=== PATIENT | male | born 1955 | race American Indian/Alaskan Native ===

== ENCOUNTER 2016-10-08 08:36 | Outpatient (CLI) | payer MEDICARE ==
--- NOTE | 2016-10-08 09:13 | XRay Report ---
Right hip: Severe periarticular spurs are identified involving the superior and medial joint articulations with virtual absence of any superior joint space and marked narrowing of the medial joint space. Subchondral cysts are identified in the femoral head and in the lateral superior acetabulum. The hip appears well positioned within the acetabula. AP view of the left hip also demonstrates mild narrowing of the superior joint space however the articular surfaces are smooth. There is mild lateral spurring of the femoral head. The SI joints are grossly normal. Severe spondylosis is noted at the L4 and L5 levels with significant narrowing of the right lateral L4-5 joint space and poor definition of the L5-S1 space. Impressions: 1. Severely degenerative right hip. 2. 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 3. Mild degenerative left hip changes.
== END 2016-10-08 08:37 | disposition home or self-care (01) ==
LOC: XRAY 08:36
PROVIDERS: ATTEND Family Medicine
DX: M16.11 Unilateral primary osteoarthritis, right hip (principal); M47.896 Other spondylosis, lumbar region; M25.851 Other specified joint disorders, right hip

== ENCOUNTER 2017-09-01 08:29 | Outpatient (CLI) | payer MEDICARE | END 2017-09-01 08:30 | disposition home or self-care (01) | LOC: CARD 08:29 | PROVIDERS: ATTEND Family Medicine | DX: Z01.818 Encounter for other preprocedural examination (principal); R09.89 Other specified symptoms and signs involving the circulatory and respiratory systems; F17.200 Nicotine dependence, unspecified, uncomplicated | CPT/HCPCS: 93005; 93010 ==

== ENCOUNTER 2018-09-14 07:49 | Outpatient (CLI) | payer MEDICARE ==
--- NOTE | 2018-09-14 08:36 | XRay Report ---
CHEST XRAY, 2 VIEWS: History: COPD. Findings: There is mild diffuse interstitial coarsening. The lungs are hyperexpanded but clear. No infiltrate, pleural fluid or pneumothorax is detected. The cardiac silhouette and pulmonary vasculature are within normal limits for technique. The bony thorax is unremarkable. IMPRESSION: Changes consistent with COPD. No acute cardiopulmonary process.
== END 2018-09-14 07:50 | disposition home or self-care (01) ==
LOC: XRAY 07:49
PROVIDERS: ATTEND Internal Medicine
DX: J44.9 Chronic obstructive pulmonary disease, unspecified (principal); M19.90 Unspecified osteoarthritis, unspecified site
CPT/HCPCS: 71046

== ENCOUNTER 2019-11-24 09:03 | Outpatient (CLI) | payer MEDICARE ==
--- NOTE | 2019-11-24 09:48 | XRay Report ---
CHEST PA AND LATERAL VIEWS INDICATION: J44.9Chronic obstructive pulmonary disease, unspecified. COMPARISON: 09/14/2018 FINDINGS: Support devices: None Heart: Normal and unchanged Lungs/Pleura: No acute pulmonary or pleural findings. Lungs are again mildly hyperinflated. IMPRESSION: 1. No acute disease and no interval change. Signer Name: Yinka Loco MD Signed: 11/24/2019 9:44 AM Workstation Name: [id number]
== END 2019-11-24 09:04 | disposition home or self-care (01) ==
LOC: XRAY 09:03
PROVIDERS: ATTEND Internal Medicine
DX: J98.11 Atelectasis (principal); J44.9 Chronic obstructive pulmonary disease, unspecified
CPT/HCPCS: 71046